=== PATIENT | female | born 1950 | race Caucasian/White ===

== ENCOUNTER 2017-02-06 18:01 | Inpatient (IN) | payer MEDICARE, MEDICAID ==
[~2017-02-06 18:01] MED LIST: ACETAMINOPHEN325 M3 PO; ACTIVASE100 MG/VIA IVP; ACTOS30 MG; ACTOS30 MG PO; ADVAIR 25028 BLISTE1 PO; ALAVERT10 MG; ALBUTEROL1.25 MG/3 INH; ALOE VESTA56 G1 TP; ALOE VESTA56 GM TP; ANALGESIC BA28.35 GM TP; AQUAPHOR; ASPIR 8181 M1 PO; ASPIR 8181 MG PO; ASPIRIN EC LOW81 MG; ATIVAN0.5 MG PO; ATIVAN1 MG PO; AZITHROMYCIN250 MG PO; BABY ASPIRIN81 MG; BACITRACIN28.4 GM TP; BACTRIM DS TAB1 EAC2 PO; BACTRIM DS1 TA1 PO; BACTROBAN15 GM TP; BISACODYL10 M1 RC; CALMOSEPTINE O3.5 G1 TP; CEROVITE ADVANC1 TAB PO; CEROVITE237 ML; CHOLESTYRAMINE P4 GM PO; CHOLESTYRAMINE PO; CIPRO500 MG; CIPRO500 MG/5 M PO; CLEOCIN HCL300 MG PO; CLINDAMYCIN HC300 MG PO; COLACE-T100 MG PO; COLACE100 MG PO; COMPAZINE10 MG PO; COUMADIN; COUMADIN1 MG PO; COUMADIN2 MG; COUMADIN2.5 M1 PO; COUMADIN3 MG; COUMADIN3 MG PO; COUMADIN4 MG PO; COUMADIN5 M2 PO; COUMADIN5 MG; COUMADIN5 MG PO; COUMADIN6 MG; COUMADIN6 MG PO; COUMADIN7.5 MG PO; CRANBERRY400 MG PO; CUBICIN IV; CUBICIN500 MG/VIA IV; CULTURELLE1 CA1 PO; CULTURELLE1 EAC2 PO; DEMADEX20 M1 PO; DIFLUCAN100 MG PO; DILANTIN100 M1 PO; DILANTIN100 MG; DILANTIN100 MG PO; DIOVAN PO; DULCOLAX10 MG/SUPP RC; ECOTRIN81 M1 PO; FAMOTIDINE20 MG; FAMOTIDINE20 MG PO; FUROSEMIDE40 MG PO; GAVILAX17 G2 PO; GLUCAGON EMERGEN1 MG IJ; GLUCAGON1 MG/KIT IJ; HIPREX1 G PO; HIPREX1 GM PO; HUMALOG100 U/ML SQ; HYDROCORTISONE30 G2 APL; IMODIUM A-D2 M3 PO; IMODIUM2 MG PO; IPRAT-ALBUT 0.5-3 ML IH; IPRAT-ALBUT 0.5-3 ML INH; KEFLEX500 M2 PO; KEFLEX500 M4 PO; KEFLEX500 MG PO; LANTUS SOL100 UNIT/1 SC; LANTUS100 U/ML; LANTUS100 U/ML SC; LASIX20 MG PO; LASIX40 MG; LASIX40 MG PO; LASIX80 MG PO; LEVAQUIN250 M3 PO; LEVAQUIN750 MG PO; LEVEMIR100 UNITS/ SC; LEVOTHYROXINE50 MC3 PO; LEXAPRO5 M1 PO; LEXAPRO5 MG PO; LIPITOR10 MG; LISINOPRIL40 MG; LISINOPRIL40 MG PO; LOPERAMIDE2 M2 PO; LOPRESSOR25 MG/TA1 PO; LOPRESSOR25 MG/TA7 PO; LOTRIMIN AF12 GM TP; LOTRIMIN30 GM TP; LOVENOX40 MG/0.4 SQ; MAALOX ADVANCE355 M2 PO; MACROBID 100 M100 M1 PO; MACROBID100 MG/CAP PO; METOPROLOL TART25 MG; METOPROLOL TART25 MG PO; METOPROLOL TART50 M2 PO; METRONIDAZOLE500 M2 PO; MICONAZOLE 2% TOP; MILK OF MA400 MG/5 M PO; MILK OF MAGNESIA PO; MIRALAX17 G1 PO; MIRALAX17 G2 PO; MIRALAX17 GM PO; MONOJECT PREFIL10 M1 IV; MUCUS RELIEF400 M1 PO; MULTIVITAMIN1 TAB; MULTIVITAMIN1 TAB PO; MYCOSTATIN15 GM TP; MYRBETRIQ25 M1 PO; NITROFURANTOIN50 MG PO; NOVOLOG FL100 UNIT/2 SC; NOVOLOG100 U/M; NOVOLOG100 U/M SC; NOVOLOG100 U/M SQ; NOVOLOG100 UNIT/1 SQ; NOVOLOG100 UNITS/ SC; NYSTOP15 GM TOP; NYSTOP60 GM TP; ONDANSETRON HCL4 M2 PO; OXYCODONE/APAP PO; PANTOPRAZOLE SO40 M3 PO; PEPCID20 MG; PEPCID20 MG PO; PHENYTOIN SODI; PHENYTOIN SODI100; PHENYTOIN SODI100 PO; PHENYTOIN SODI200 M1 PO; PRAVACHOL40 M1 PO; PRAVACHOL40 MG; PRAVACHOL40 MG PO; PRINIVIL40 MG; PRINIVIL40 MG PO; PROTONIX40 M2 PO; PROTONIX40 MG PO; QUESTRAN LIGHT; QUESTRAN POWDE378 GM PO; ROXICODONE5 MG/TAB PO; SLIDING SCALE; SMZ-TMP DS 800-1 TAB PO; SODIUM CHLORIDE10 ML FL; SPECTAZOLE EXT; SPIRONOLACTONE25 M2 PO; SUMYCIN 500500 MG PO; TETRACYCLINE H500 MG PO; TIROSINT50 MC1 PO; TOPROL XL50 M1 PO; TYLENOL325 M1 PO; TYLENOL325 M2 PO; TYLENOL325 MG PO; TYLENOL500 MG PO; UREX PO; VALSARTAN40 MG PO; VEETIDS 500500 M1 PO; VITAMIN C500 M3 PO; VOLTAREN100 G1 TP; ZOFRAN ODT4 MG PO; [UNRECOGNIZED DRUG - OTHER] PO; [UNRECOGNIZED DRUG - OTHER] PO; [UNRECOGNIZED DRUG - OTHER] PO
[2017-02-06] MEDS ORDERED: COUMADIN2.5 M1 PO (18:32)
[2017-02-06] MEDS ORDERED: SYNTHROID75 MC1 PO (18:32)
[2017-02-06] MEDS ORDERED: ORGAN-I NR200 M1 PO (18:34)
[2017-02-06] MEDS ORDERED: DUONEB INH (18:34)
[2017-02-06] MEDS ORDERED: VICTOZA 2-0.6 MG/0.1 SC (18:34)
[2017-02-06] MEDS ORDERED: NYSTOP60 GM EXT (18:35)
[2017-02-06] MEDS ORDERED: NOVOLOG100 UNITS/ SC (18:35)
[2017-02-06] MEDS ORDERED: FLEET ENEMA133 ML PR (18:36)
[2017-02-06] MEDS ORDERED: MONISTAT 31 EACH VG (18:36)
[2017-02-06] MEDS ORDERED: CETAPHIL237 ML TP (18:36)
[2017-02-06] MEDS ORDERED: BISCOLAX10 MG PR (18:36)
[2017-02-06] MEDS ORDERED: CIPRO500 M2 PO (18:37)
[2017-02-06] MEDS ORDERED: [UNRECOGNIZED DRUG - OTHER] PO (18:37)
[2017-02-06] MEDS ORDERED: MUPIROCIN22 G2 TP (18:37)
[2017-02-06] MEDS ORDERED: RISAMINE OINTM113 G1 TP (18:38)
[2017-02-06] MEDS ORDERED: TRESIBA FL100 UNIT/1 SC (18:38)
[2017-02-06] MEDS ORDERED: TYLENOL EXTRA500 M1 PO (18:38)
[2017-02-06 18:46] LABS: BASO % 0.4 % (0-2); EOS % 0.4 % (0-7); HGB-HEMOGLOBIN 16.2 gm/dl (12.0-15.5); IMMATURE GRANULOCYTES ABSOLUTE 0.02 tho/cmm (0-0.03); IMMATURE GRANULOCYTES PERCENT 0.3 % (0-0.3); LYMPH % 15.2 % (20-45); MCH (MEAN CORPUSCULAR HGB) 29.5 pg (28.0-32.0); MCHC MEAN CORPUSCULAR HGB CONC 33.1 % (32.0-36.0); MCV (MEAN CELL VOLUME) 89.1 fl (82.0-96.0); MEAN PLATELET VOLUME 9.9 cmc (9.4-12.4); MONO % 12.1 % (0-12); MONOCYTE ABSOLUTE COUNT 0.8 tho/cmm (0.0-1.2); NEUTROPHIL ABSOLUTE COUNT 4.9 tho/cmm (1.6-8.0); NEUTROPHIL-AUTOMATED 4.9 tho/cmm (1.6-8.0); NEUTROPHILS % 71.6 % (40-80); PLATELET COUNT 161 tho/cmm (150-450); WHITE BLOOD COUNT 6.9 tho/cmm (4.0-10.0)
[2017-02-06 18:50] LABS: INR 2.2 INR (0.9-1.1); PROTHROMBIN TIME 25.6 SECONDS (9.0-13.6)
[2017-02-06 18:51] LABS: ABG CO2 ARTERIAL 36 mmol/L (21-27); ARTERIAL BLD GAS O2 SATURATION 97 % (95-98); ARTERIAL BLOOD GAS PCO2 53 mmHg (32-45); ARTERIAL PO2 85 mmHg (70-100); BICARBONATE 34 mmol/L (21-28); BLOOD GAS BASE EXCESS 8 mM/L (-/+3); PH 7.42 Units (7.35-7.45)
[2017-02-06 19:04] LABS: ANION GAP 10 mmol/L (0-20); BLOOD UREA NITROGEN 56 mg/dl (6-24); CALCIUM 9.2 mg/dl (8.5-10.5); CARBON DIOXIDE-VENOUS 36 mmol/L (22-32); CHLORIDE 92 mmol/l (96-110); CREATININE 1.15 mg/dl (0.50-1.10); GLUCOSE 175 mg/dL (70-110); POTASSIUM 4.5 mmol/L (3.7-5.1); SODIUM 133 mmol/L (135-145); eGFR VALUE FOR BLACK 57 mL/Min
[2017-02-06 23:06] LABS: PROCALCITONIN <0.05 ng/ml (0.05-0.09)
[2017-02-06 23:24] LABS: MAGNESIUM 2.2 mg/dl (1.8-2.6); PHOSPHOROUS 3.1 mg/dl (2.5-4.9)
[2017-02-06 23:41] LABS: C-REACTIVE PROTEIN 21.2 mg/dl (0-0.9)
[2017-02-07 01:45] LABS: TSH-THYROID STIMULATING HORM. 3.75 uIU/ml (0.40-3.80)
[2017-02-07 05:13] LABS: INR 2.3 INR (0.9-1.1); PROTHROMBIN TIME 27.6 SECONDS (9.0-13.6)
[2017-02-07 05:15] LABS: BASO % 0.4 % (0-2); EOS % 0.4 % (0-7); HCT-HEMATOCRIT 46.7 % (34.0-49.0); HGB-HEMOGLOBIN 15.1 gm/dl (12.0-15.5); IMMATURE GRANULOCYTES ABSOLUTE 0.01 tho/cmm (0-0.03); IMMATURE GRANULOCYTES PERCENT 0.2 % (0-0.3); LYMPH % 17.6 % (20-45); MCHC MEAN CORPUSCULAR HGB CONC 32.3 % (32.0-36.0); MCV (MEAN CELL VOLUME) 89.6 fl (82.0-96.0); MEAN PLATELET VOLUME 9.7 cmc (9.4-12.4); MONO % 17.6 % (0-12); NEUTROPHIL ABSOLUTE COUNT 3.5 tho/cmm (1.6-8.0); NEUTROPHIL-AUTOMATED 3.5 tho/cmm (1.6-8.0); NEUTROPHILS % 63.8 % (40-80); PLATELET COUNT 138 tho/cmm (150-450); RED BLOOD COUNT 5.21 mil/cmm (4.00-5.20); RED CELL DISTRIBUTION WIDTH 14.2 % (12.4-16.4); WHITE BLOOD COUNT 5.4 tho/cmm (4.0-10.0)
[2017-02-07 05:23] LABS: ANION GAP 8 mmol/L (0-20); BLOOD UREA NITROGEN 50 mg/dl (6-24); CALCIUM 8.7 mg/dl (8.5-10.5); CARBON DIOXIDE-VENOUS 35 mmol/L (22-32); CHLORIDE 96 mmol/l (96-110); CREATININE 1.06 mg/dl (0.50-1.10); GLUCOSE 112 mg/dL (70-110); POTASSIUM 4.2 mmol/L (3.7-5.1); SODIUM 135 mmol/L (135-145); eGFR VALUE FOR BLACK 62 mL/Min
[2017-02-08 05:48] LABS: URINE BILIRUBIN NEGATIVE (NEG); URINE BLOOD MODERATE (NEG); URINE GLUCOSE (UA) NEGATIVE (NEG); URINE KETONE NEGATIVE (NEG); URINE LEUKOCYTE ESTERASE POSITIVE (NEG); URINE NITRITE NEGATIVE (NEG); URINE PROTEIN MODERATE (NEG); URINE SPECIFIC GRAVITY 1.005 (1.003-1.030)
[2017-02-08 05:49] LABS: URINE APPEARANCE CLOUDY; URINE COLOR PALE YELLOW
[2017-02-08 05:58] LABS: URINE WBC FULL FIELD /[HPF] (0-5)
[2017-02-08 05:59] LABS: URINE BACTERIA 1+
[2017-02-08 06:04] LABS: INR 2.5 INR (0.9-1.1); PROTHROMBIN TIME 29.4 SECONDS (9.0-13.6)
[2017-02-08 06:42] LABS: PROCALCITONIN <0.05 ng/ml (0.05-0.09)
[2017-02-09 05:31] LABS: INR 1.9 INR (0.9-1.1); PROTHROMBIN TIME 22.8 SECONDS (9.0-13.6)
[2017-02-10 04:37] LABS: INR 1.6 INR (0.9-1.1); PROTHROMBIN TIME 19.1 SECONDS (9.0-13.6)
--- NOTE | 2017-02-10 19:22 | NUR ---
PATIENT MADE NPO AT [address] LONDONO[address] [facility] REPORT GIVEN TO BRITTNI AT 1715 NOTIFIED PATIENT IS TO GET LEVAQUIN IV BEFORE OR AND IT HAS NOT COME UP YET, PATIENT HAS SIGNED CONSENT FOR THE PROCEEDURE BUT WANTS TO SPEAK TO ANESTHESIA PRIOR TO SIGNING ANESTHESIA CONSENT, PATIENT ALSO HAS ONLY BEEN NPO SINCE 1630. CALLED [facility] AT 1810 TO VERIFY THEY RECEIVED THE PREOP LEVAQUIN - RN STATES THEY DID.
[2017-02-11 05:08] LABS: INR 1.5 INR (0.9-1.1); PROTHROMBIN TIME 17.2 SECONDS (9.0-13.6)
[2017-02-11 05:17] LABS: ANION GAP 12 mmol/L (0-20); BLOOD UREA NITROGEN 45 mg/dl (6-24); CALCIUM 7.5 mg/dl (8.5-10.5); CARBON DIOXIDE-VENOUS 26 mmol/L (22-32); CHLORIDE 105 mmol/l (96-110); CREATININE 1.07 mg/dl (0.50-1.10); GLUCOSE 90 mg/dL (70-110); POTASSIUM 3.5 mmol/L (3.7-5.1); SODIUM 139 mmol/L (135-145); eGFR VALUE FOR BLACK 62 mL/Min
[2017-02-11 09:13] LABS: BASO % 0.3 % (0-2); EOS % 5.3 % (0-7); EOSINOPHIL ABSOLUTE COUNT 0.3 tho/cmm (0.0-0.7); HCT-HEMATOCRIT 40.5 % (34.0-49.0); HGB-HEMOGLOBIN 13.4 gm/dl (12.0-15.5); IMMATURE GRANULOCYTES ABSOLUTE 0.04 tho/cmm (0-0.03); IMMATURE GRANULOCYTES PERCENT 0.7 % (0-0.3); LYMPH % 17.4 % (20-45); LYMPH ABSOLUTE COUNT 1.1 tho/cmm (0.8-4.5); MCH (MEAN CORPUSCULAR HGB) 29.1 pg (28.0-32.0); MCHC MEAN CORPUSCULAR HGB CONC 33.1 % (32.0-36.0); MEAN PLATELET VOLUME 9.3 cmc (9.4-12.4); MONO % 7.8 % (0-12); MONOCYTE ABSOLUTE COUNT 0.5 tho/cmm (0.0-1.2); NEUTROPHIL ABSOLUTE COUNT 4.1 tho/cmm (1.6-8.0); NEUTROPHIL-AUTOMATED 4.1 tho/cmm (1.6-8.0); NEUTROPHILS % 68.5 % (40-80); PLATELET COUNT 162 tho/cmm (150-450); RED CELL DISTRIBUTION WIDTH 13.9 % (12.4-16.4)
[2017-02-12 03:21] LABS: INR 1.6 INR (0.9-1.1); PROTHROMBIN TIME 19.1 SECONDS (9.0-13.6)
[2017-02-13 03:32] LABS: BASO % 0.3 % (0-2); EOS % 4.6 % (0-7); EOSINOPHIL ABSOLUTE COUNT 0.3 tho/cmm (0.0-0.7); HCT-HEMATOCRIT 37.7 % (34.0-49.0); HGB-HEMOGLOBIN 12.4 gm/dl (12.0-15.5); IMMATURE GRANULOCYTES ABSOLUTE 0.06 tho/cmm (0-0.03); LYMPH % 16.4 % (20-45); MCH (MEAN CORPUSCULAR HGB) 29.2 pg (28.0-32.0); MCHC MEAN CORPUSCULAR HGB CONC 32.9 % (32.0-36.0); MCV (MEAN CELL VOLUME) 88.7 fl (82.0-96.0); MEAN PLATELET VOLUME 9.2 cmc (9.4-12.4); MONO % 7.6 % (0-12); MONOCYTE ABSOLUTE COUNT 0.5 tho/cmm (0.0-1.2); NEUTROPHIL ABSOLUTE COUNT 4.3 tho/cmm (1.6-8.0); NEUTROPHIL-AUTOMATED 4.3 tho/cmm (1.6-8.0); NEUTROPHILS % 70.1 % (40-80); PLATELET COUNT 153 tho/cmm (150-450); RED BLOOD COUNT 4.25 mil/cmm (4.00-5.20); WHITE BLOOD COUNT 6.1 tho/cmm (4.0-10.0)
[2017-02-13 03:36] LABS: INR 1.5 INR (0.9-1.1); PROTHROMBIN TIME 18.1 SECONDS (9.0-13.6)
[2017-02-13 03:42] LABS: ANION GAP 11 mmol/L (0-20); BLOOD UREA NITROGEN 53 mg/dl (6-24); CALCIUM 8.5 mg/dl (8.5-10.5); CARBON DIOXIDE-VENOUS 30 mmol/L (22-32); CHLORIDE 100 mmol/l (96-110); CREATININE 1.02 mg/dl (0.50-1.10); POTASSIUM 4.1 mmol/L (3.7-5.1); SODIUM 137 mmol/L (135-145); eGFR VALUE FOR BLACK 65 mL/Min
[2017-02-13 03:43] LABS: GLUCOSE 142 mg/dL (70-110)
[2017-02-14 04:38] LABS: INR 1.4 INR (0.9-1.1); PROTHROMBIN TIME 16.5 SECONDS (9.0-13.6)
[2017-02-15 05:20] LABS: INR 1.5 INR (0.9-1.1); PROTHROMBIN TIME 17.6 SECONDS (9.0-13.6)
[2017-02-15] MEDS ORDERED: LEVAQUIN750 M1 PO (11:40)
[2017-02-15] MEDS ORDERED: IPRAT-ALBUT 0.5-3 ML INH (11:42)
[2017-02-15] MEDS ORDERED: HYDROCODON-ACE1 EA16 PO (11:49)
[2017-02-15] MEDS ORDERED: NOVOLOG100 UNITS/ SC (11:57)
[2017-02-15] MEDS ORDERED: LEVEMIR100 UNITS/ SC (12:01)
[2017-03-03] MEDS ORDERED: NYSTATIN1 EA10 MC (13:59)
[2017-03-03] MEDS ORDERED: TYLENOL325 M2 PO (14:00)
[2017-03-03] MEDS ORDERED: MI ACID SUSPEN355 M1 PO (14:01)
[2017-03-03] MEDS ORDERED: CULTURELLE1 EAC1 PO (14:02)
[2017-03-03] MEDS ORDERED: BISCOLAX10 MG PR (14:02)
[2017-03-14] MEDS ORDERED: VICTOZA 3-0.6 MG/0.2 SC (11:59)
[2017-03-31] MEDS ORDERED: MUCUS RELIEF400 M1 PO (14:10)
== END 2017-02-15 14:09 | DRG 853 ==
LOC: EDMED 18:01 → EMR2 20:40 → PCUB 02-07 00:19 → ORW 02-10 18:02 → PCUB 02-10 18:56
PROVIDERS: Emergency Medicine; Internal Medicine; Internal Medicine Pulmonary Disease; Registered Nurse; Surgery; ADMIT Internal Medicine
PROC: 02HV33Z Insertion of Infusion Device into Superior Vena Cava, Percutaneous Approach (ICD-10-PCS; principal; 2017-02-07)
PROC: 5A09357 Assistance with Respiratory Ventilation, Less than 24 Consecutive Hours, Continuous Positive Airway Pressure (ICD-10-PCS; 2017-02-07)
PROC: 06LY0ZZ Occlusion of Lower Vein, Open Approach (ICD-10-PCS; 2017-02-10)
PROC: 0JBN0ZZ Excision of Right Lower Leg Subcutaneous Tissue and Fascia, Open Approach (ICD-10-PCS; 2017-02-10)
PROC: 0JCN0ZZ Extirpation of Matter from Right Lower Leg Subcutaneous Tissue and Fascia, Open Approach (ICD-10-PCS; 2017-02-10)
DX: A41.9 Sepsis, unspecified organism (principal); J15.6 Pneumonia due to other Gram-negative bacteria; J96.21 Acute and chronic respiratory failure with hypoxia; N17.9 Acute kidney failure, unspecified; E11.42 Type 2 diabetes mellitus with diabetic polyneuropathy; D69.6 Thrombocytopenia, unspecified; E11.51 Type 2 diabetes mellitus with diabetic peripheral angiopathy without gangrene; J96.22 Acute and chronic respiratory failure with hypercapnia; E66.2 Morbid (severe) obesity with alveolar hypoventilation; Z68.45 Body mass index [BMI] 70 or greater, adult; R04.2 Hemoptysis; N39.0 Urinary tract infection, site not specified; I27.2 Other secondary pulmonary hypertension; Y95 Nosocomial condition; S81.801A Unspecified open wound, right lower leg, initial encounter; E66.01 Morbid (severe) obesity due to excess calories; Z86.718 Personal history of other venous thrombosis and embolism; Z79.01 Long term (current) use of anticoagulants; G25.81 Restless legs syndrome; G47.33 Obstructive sleep apnea (adult) (pediatric); K58.9 Irritable bowel syndrome, unspecified; I10 Essential (primary) hypertension; W19.XXXA Unspecified fall, initial encounter; Z86.711 Personal history of pulmonary embolism; I07.1 Rheumatic tricuspid insufficiency; Z87.11 Personal history of peptic ulcer disease; J44.9 Chronic obstructive pulmonary disease, unspecified; Z99.81 Dependence on supplemental oxygen; M19.90 Unspecified osteoarthritis, unspecified site; E78.5 Hyperlipidemia, unspecified; E03.9 Hypothyroidism, unspecified; K21.9 Gastro-esophageal reflux disease without esophagitis; Z87.891 Personal history of nicotine dependence; Z88.8 Allergy status to other drugs, medicaments and biological substances; Z91.040 Latex allergy status; Z79.4 Long term (current) use of insulin; R65.20 Severe sepsis without septic shock; Z85.828 Personal history of other malignant neoplasm of skin; I89.0 Lymphedema, not elsewhere classified; Y92.230 Patient room in hospital as the place of occurrence of the external cause; Z87.898 Personal history of other specified conditions
CPT/HCPCS: C1751; G8996-GN-CI; G8997-GN-CH; G8998-GN-CH; G8998-GN-CI; J1815; J1956; J2543; J2997; J3370; J7030; J7050

== ENCOUNTER 2017-02-25 00:07 | Emergency (ER) | payer MEDICARE, MEDICAID ==
[~2017-02-25 00:07] MED LIST changes: +BISCOLAX10 MG PR; +CETAPHIL237 ML TP; +CIPRO500 M2 PO; +DUONEB INH; +FLEET ENEMA133 ML PR; +HYDROCODON-ACE1 EA16 PO; +LEVAQUIN750 M1 PO; +MONISTAT 31 EACH VG; +MUPIROCIN22 G2 TP; +NYSTOP60 GM EXT; +ORGAN-I NR200 M1 PO; +RISAMINE OINTM113 G1 TP; +SYNTHROID75 MC1 PO; +TRESIBA FL100 UNIT/1 SC; +TYLENOL EXTRA500 M1 PO; +VICTOZA 2-0.6 MG/0.1 SC; +[UNRECOGNIZED DRUG - OTHER] PO
[2017-02-25] MEDS ORDERED: MUCINEX600 M1 PO (00:41)
[2017-02-25] MEDS ORDERED: LEXAPRO5 M1 PO (00:41)
[2017-02-25] MEDS ORDERED: DILANTIN100 M1 PO (00:41)
[2017-02-25] MEDS ORDERED: VITAMIN C500 M3 PO (00:42)
[2017-02-25] MEDS ORDERED: SYNTHROID75 MC1 PO (00:42)
[2017-02-25] MEDS ORDERED: PROTONIX40 M2 PO (00:42)
[2017-02-25] MEDS ORDERED: DEMADEX20 M1 PO (00:42)
[2017-02-25] MEDS ORDERED: COUMADIN5 M2 PO (00:43)
[2017-02-25] MEDS ORDERED: PROSTAT PO (00:44)
[2017-02-25] MEDS ORDERED: LEVEMIR100 UNITS/ SC (00:46)
[2017-02-25] MEDS ORDERED: NOVOLOG100 UNITS/ SC ×2 (00:46)
[2017-02-25] MEDS ORDERED: RISAMINE OINTM113 G1 TOP (00:47)
[2017-02-25] MEDS ORDERED: ADVAIR 25028 BLISTE1 PO (00:48)
[2017-02-25] MEDS ORDERED: PRAVACHOL40 M1 PO (00:48)
[2017-02-25] MEDS ORDERED: DIOVAN80 M1 PO (00:48)
[2017-02-25] MEDS ORDERED: DIOVAN PO (00:48)
[2017-02-25] MEDS ORDERED: HIPREX1 GM PO (00:48)
[2017-02-25] MEDS ORDERED: ASPIRIN EC81 MG PO (00:49)
[2017-02-25] MEDS ORDERED: TOPROL XL50 M1 PO (00:49)
[2017-03-03] MEDS ORDERED: NYSTATIN1 EA10 MC (13:59)
[2017-03-03] MEDS ORDERED: TYLENOL325 M2 PO (14:00)
[2017-03-03] MEDS ORDERED: MI ACID SUSPEN355 M1 PO (14:01)
[2017-03-03] MEDS ORDERED: BISCOLAX10 MG PR (14:02)
[2017-03-03] MEDS ORDERED: CULTURELLE1 EAC1 PO (14:02)
[2017-03-14] MEDS ORDERED: VICTOZA 3-0.6 MG/0.2 SC (11:59)
[2017-03-31] MEDS ORDERED: MUCUS RELIEF400 M1 PO (14:10)
== END 2017-02-25 03:00 ==
LOC: EDMED 00:07
PROC: 2Y41X5Z Packing of Nasal Region using Packing Material (ICD-10-PCS; principal; 2017-02-25)
DX: R04.0 Epistaxis (principal); E10.9 Type 1 diabetes mellitus without complications; I10 Essential (primary) hypertension; J44.9 Chronic obstructive pulmonary disease, unspecified; E66.01 Morbid (severe) obesity due to excess calories; Z86.718 Personal history of other venous thrombosis and embolism; Z86.711 Personal history of pulmonary embolism; Z88.0 Allergy status to penicillin; Z87.891 Personal history of nicotine dependence; Z79.4 Long term (current) use of insulin; Z79.01 Long term (current) use of anticoagulants; Z79.899 Other long term (current) drug therapy

== ENCOUNTER 2017-02-26 17:56 | Emergency (ER) | payer MEDICARE, MEDICAID ==
[~2017-02-26 17:56] MED LIST changes: +ASPIRIN EC81 MG PO; +DIOVAN80 M1 PO; +MUCINEX600 M1 PO; +PROSTAT PO; +RISAMINE OINTM113 G1 TOP
[2017-03-03] MEDS ORDERED: NYSTATIN1 EA10 MC (13:59)
[2017-03-03] MEDS ORDERED: TYLENOL325 M2 PO (14:00)
[2017-03-03] MEDS ORDERED: MI ACID SUSPEN355 M1 PO (14:01)
[2017-03-03] MEDS ORDERED: BISCOLAX10 MG PR (14:02)
[2017-03-03] MEDS ORDERED: CULTURELLE1 EAC1 PO (14:02)
[2017-03-14] MEDS ORDERED: VICTOZA 3-0.6 MG/0.2 SC (11:59)
[2017-03-31] MEDS ORDERED: MUCUS RELIEF400 M1 PO (14:10)
== END 2017-02-26 20:34 ==
LOC: EDMED 17:56
DX: R04.0 Epistaxis (principal); R11.0 Nausea; E11.9 Type 2 diabetes mellitus without complications; I10 Essential (primary) hypertension; Z79.4 Long term (current) use of insulin; Z79.82 Long term (current) use of aspirin; Z79.899 Other long term (current) drug therapy; Z79.01 Long term (current) use of anticoagulants; Z98.890 Other specified postprocedural states

== ENCOUNTER 2017-03-11 12:22 | Emergency (ER) | payer MEDICARE, MEDICAID ==
[~2017-03-11 12:22] MED LIST changes: +CULTURELLE1 EAC1 PO; +MI ACID SUSPEN355 M1 PO; +NYSTATIN1 EA10 MC
[2017-03-11] MEDS ORDERED: IPRAT-ALBUT 0.5-3 ML INH (13:22)
[2017-03-11] MEDS ORDERED: CHOLESTYRAMINE P4 GM PO (13:23)
[2017-03-11] MEDS ORDERED: TYLENOL EXTRA500 M1 PO (13:26)
[2017-03-11] MEDS ORDERED: MILK OF MAGNESIA PO (13:28)
[2017-03-11] MEDS ORDERED: FLEET ENEMA133 ML PR (13:28)
[2017-03-11] MEDS ORDERED: ZOFRAN ODT4 MG PO (13:29)
[2017-03-11] MEDS ORDERED: MIRALAX17 G2 PO (13:29)
[2017-03-11] MEDS ORDERED: MUPIROCIN22 G2 TP (13:33)
[2017-03-11] MEDS ORDERED: COUMADIN5 M2 PO (13:37)
[2017-03-11] MEDS ORDERED: DEEP SEA45 M1 (13:38)
[2017-03-11] MEDS ORDERED: VICTOZA 3-0.6 MG/0.2 SC (13:38)
[2017-03-11] MEDS ORDERED: TRESIBA FL200 UNIT/1 SC (13:39)
[2017-03-11] MEDS ORDERED: PRO-STAT LIQUID30 M1 PO (13:44)
[2017-03-14] MEDS ORDERED: VICTOZA 3-0.6 MG/0.2 SC (11:59)
[2017-03-31] MEDS ORDERED: MUCUS RELIEF400 M1 PO (14:10)
== END 2017-03-11 14:50 ==
LOC: EDMED 12:22
DX: Z48.02 Encounter for removal of sutures (principal); E11.9 Type 2 diabetes mellitus without complications; I10 Essential (primary) hypertension; Z79.4 Long term (current) use of insulin; Z79.82 Long term (current) use of aspirin; Z79.899 Other long term (current) drug therapy